=== PATIENT | female | born 1995 | race Caucasian/White ===

== ENCOUNTER 2020-08-31 16:49 | Emergency (ER) | payer OTHER, BC ==
[~2020-08-31] VITALS: Ht 157.5 cm; Wt 59.0 kg
[2020-08-31 22:20] VITALS: BP 124/83
== END 2020-08-31 22:22 | disposition home or self-care (01) ==
LOC: ER 16:49
DX: Z34.01 Encounter for supervision of normal first pregnancy, first trimester (principal); Z3A.01 Less than 8 weeks gestation of pregnancy
CPT/HCPCS: 36415; 76801; 76817; 81002; 84702

== ENCOUNTER 2022-12-01 22:27 | Emergency (ER) | payer OTHER ==
[~2022-12-01] VITALS: Ht 157.5 cm; Wt 66.4 kg
[2022-12-01 23:38] LABS: Basophils # (auto) 0.1 10 ^3/uL (0-0.2); Eosinophils # (auto) 0.2 10 ^3/uL (0-0.8); Monocytes # (auto) 0.8 10 ^3/uL (0-1.3)
[2022-12-01 23:40] LABS: Basophils % (auto) 0.8 % (0.0-2.0); Eosinophils % (auto) 1.9 % (0.0-7.0); Hemoglobin 13.2 g/dL (12.2-16.2); Lymphocytes % (auto) 19.7 % (10.0-50.0); Mean Corpuscular Hemoglobin 26.7 pg (28.0-32.0); Mean Corpuscular Hgb Conc. 32.9 g/dL (32.0-36.0); Mean Corpuscular Volume 81.2 fL (80.0-100.0); Monocytes % (auto) 7.7 % (0.0-12.0); Neutrophils # (auto) 7.3 10 ^3/uL (1.6-8.6); Neutrophils % (auto) 69.9 % (37.0-80.0); Red Blood Cells 4.92 10^6/uL (4.0-5.20); Red Cell Distribution Width 14.8 % (11.8-14.3); White Blood Cell 10.4 10^3/uL (4.4-10.8)
[2022-12-01 23:48] LABS: Albumin 4.4 g/dL (3.4-5.0); BUN/Creatinine Ratio 15.6; Calcium 9.1 mg/dL (8.5-10.1); Potassium 3.9 mmol/L (3.5-5.1)
[2022-12-01 23:50] LABS: Urine Bacteria FEW /hpf (None Seen); Urine Blood Negative /uL (Negative); Urine Specific Gravity 1.005 (1.001-1.035); Urine WBC 1 /hpf (0 - 5)
[2022-12-01 23:50] LABS: Bilirubin, Total 0.3 mg/dL (0.2-1.0); Total Protein 7.9 g/dL (6.4-8.2)
[2022-12-02] MEDS ORDERED: MECL1TAB42 PO (00:44)
[2022-12-02 01:40] VITALS: BP 109/73
[2022-12-02] MEDS ORDERED: MECLIZINE HCL 25 MG TAB PO ONE (01:45)
== END 2022-12-02 01:42 | disposition home or self-care (01) ==
LOC: ER 22:28
DX: H81.10 Benign paroxysmal vertigo, unspecified ear (principal); F41.9 Anxiety disorder, unspecified
CPT/HCPCS: 36415; 70450; 80053; 81001; 85025; 99284; J8597

== ENCOUNTER 2024-09-27 13:21 | Emergency (ER) | payer OTHER ==
[~2024-09-27] VITALS: Ht 157.5 cm; Wt 63.3 kg
[~2024-09-27 13:21] MED LIST: MECL1TAB42 PO
--- NOTE | 2024-09-27 13:45 | ED.PDOC ---
ELECTRIC BLANKET P[employer]ER HPI Comments HPI: Poor Historian. 29-year-old female presents with a chief complaint of vaginal bleeding x onset 09/19/24, ceased on 09/23/2024, then continued again 09/25/2024 has only vaginal spotting. 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 Patient endorses some light cramping in her pelvic region and rates her pain a 1/10 currently. Patient mentions that she is being followed up by fertility clinic and was referred to the ER to rule out an ectopic and to see if the fetus is viable. Patient denies having a Rhogam shot in the past. Patient assumes that she is having a miscarriage like the many she had in the past. PMHx: Anxiety PSHx: Tonsillectomy, Uterine Polyps Allergies: None Initial Vital Signs BP: 120/73 HR: 96 Temp: 98.5F SpO2: 100% RR: 16 REVIEW OF SYSTEMS: CONSTITUTIONAL: Denies acute: fever, diaphoresis, chills, generalized weakness. HEAD: Denies acute: headache, photophobia Eyes: Denies acute: Double vision, vision loss, eye pain, eye discharge. EARS: Denies acute: tinnitus, hearing loss, ear discharge, ear pain, THROAT: Denies acute: sore throat, swelling, difficulty swallowing , pain with swallowing, change in voice. NECK: Denies acute: neck pain, neck swelling, stiff neck. HEART: Denies acute : chest pain, palpitations, LUNGS: Denies acute: SOB, wheezing, cough, hemoptysis ABDOMEN: Denies acute: abdominal pain, Nausea, Vomiting, diarrhea, melena , hematemesis, hematochezia SKIN: Denies acute: rash, redness, lesions, itchiness. EXTREMITIES: Denies acute: calf pain, numbness, tingling, weakness, denies pain in extremity. Denies acute: Low back pain. Neuro: Denies acute: focal neurological deficit, motor or sensory focal neurological deficit, tremors, seizure like activity, confusion, dizziness, change in mental status, loss of bowel or bladder function, cauda equina like symptoms. : Denies acute: dysuria, hematuria, flank pain, increase in urinary frequency. PSYCH: Denies acute: hallucination, suicidal ideation, homicidal ideation. FEMALE: Denies acute: foul odor, unusual discharge. PHYSICAL EXAM: General: no acute distress, awake and alert. Head: normocephalic, atraumatic. Neck: supple, trachea is midline, no swelling. Throat: Normal phonation. Eyes:, no erythema, no purulent discharge, no proptosis, no icterus. Heart: regular rate, regular rhythm, no significant murmur appreciated. Lungs: no apparent respiratory distress, Able to speak in full sentences. No wheezing, no rhonchi, no crackles. No stridors Clear to auscultation bilaterally. Abdomen: non tender to palpation, non distended, soft, no guarding, no rebound, + bowel sounds. Neuro: Awake, Alert, oriented to name, self, situation, follows commands GCS=15. Speech is normal. Skin: no petechia, no purpura, no cyanosis, non-pale, not jaundice. Lower extremities: --no - Pitting edema no deformity, no focal swelling, no calf TTP. Makes eye contact. moves all four extremities. Face: no apparent facial droop. Ambulating in the ED independently. 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 Allergies: Coded Allergies: Clindamycin (Verified Allergy, Unknown, 09/27/24) Home Meds Active Scripts Cephalexin Monohydrate (Cephalexin) 500 Mg Cap, 500 MG PO Q8HR for 5 Days, #15 CAP Prov:FLORENCE ALMAZAN DO 09/27/24 Meclizine HCl (Meclizine 25) 25 Mg Tab, 25 MG PO TID PRN, #40 TAB Prov:JOHN COELLO 12/02/22 Information Source: Patient Mode of Arrival: Ambulatory Past Medical History PAST MEDICAL HISTORY: Anxiety Surgical History: Denies all surgeries [employer]IABILITY TECH[employer]ICIANS History: No Pertinent [employer]CH[employer]IANS History Family History Family History: Unobtainable Social History Smoker: Non-Smoker Alcohol: Denies ETOH Use Drugs: Denies Drug Use Lives In: Home Was a procedure done? Was a procedure done?: No Differential Diagnosis ([employer]) Vaginal Bleeding: Other (Differential diagnosis includes but not limited to DU B, menorrhea, metromenorrhagia, neoplasm, coagulopathy,, trauma, miscarriage, placenta previa, placental abruption, ) X-Ray, Labs, Meds, VS Vital Signs Date Time Temp Pulse Resp B/P (MAP) Pulse Ox O2 Delivery O2 Flow Rate FiO2 09/27/24 15:24 98.5 96 18 122/82 (95) 99 98.5 09/27/24 15:24 96 18 99 Room Air* 0 21 09/27/24 13:34 98.5 96 16 120/73 (89) 100 Lab Test 09/27/24 13:50 09/27/24 13:46 Range/Units White Blood Count 11.0 H 4.4-10.8 10^3/uL Red Blood Count 5.17 4.0-5.20 10^6/uL Hemoglobin 14.7 12.2-16.2 g/dL Hematocrit 44.1 36.0-46.0 % Mean Corpuscular Volume 85.3 80.0-100.0 fL Mean Corpuscular Hemoglobin 28.5 28.0-32.0 pg Mean Corpuscular Hemoglobin Concent 33.3 32.0-36.0 g/dL Red Cell Distribution Width 13.5 11.8-14.3 % Platelet Count 318 140-450 10^3/uL Mean Platelet Volume 9.0 6.9-10.8 fL Neutrophils (%) (Auto) 76.2 37.0-80.0 % Lymphocytes (%) (Auto) 16.1 10.0-50.0 % Monocytes (%) (Auto) 6.1 0.0-12.0 % Eosinophils (%) (Auto) 1.0 0.0-7.0 % Basophils (%) (Auto) 0.6 0.0-2.0 % Neutrophils # (Auto) 8.3 1.6-8.6 10 ^3/uL Lymphocytes # (Auto) 1.8 0.4-5.4 10 ^3/uL Monocytes # (Auto) 0.7 0-1.3 10 ^3/uL Eosinophils # (Auto) 0.1 0-0.8 10 ^3/uL Basophils # (Auto) 0.1 0-0.2 10 ^3/uL Nucleated Red Blood Cells 0.0 % Sodium Level 139 136-145 mmol/L Potassium Level 3.7 3.5-5.1 mmol/L Chloride Level 105 98-107 mmol/L Carbon Dioxide Level 28 20-31 mmol/L Anion Gap 6 5-15 Blood Urea Nitrogen 10 9-23 mg/dL Creatinine 0.70 0.550-1.02 mg/dL Glomerular Filtration Rate Calc 121 >90 mL/min BUN/Creatinine Ratio 14.3 10.0-20.0 Serum Glucose 88 74-106 mg/dL Lactic Acid Level 0.9 0.4-2.0 mmol/L Calcium Level 10.2 8.7-10.4 mg/dL Total Bilirubin 0.4 0.2-1.0 mg/dL Aspartate Amino Transferase (AST) < 8 L 13-40 U/L Alanine Aminotransferase (ALT) 12 7-40 U/L Alkaline Phosphatase 88 46-116 U/L Total Protein 7.9 5.7-8.2 g/dL Albumin 5.0 H 3.2-4.8 g/dL Beta HCG, Quantitative 141.9 H 1.5-4.2 mIU/mL Urine Color Light-yellow Yellow Urine Clarity Turbid H Clear Urine pH 5.5 5.0-9.0 Urine Specific Squires 1.028 1.001-1.035 Urine Protein Negative Negative Urine Ketones Negative Negative Urine Blood 1+ H Negative /uL Urine Nitrite Negative Negative Urine Bilirubin Negative Negative Urine Urobilinogen Normal Negative mg/dL Urine Leukocyte Esterase Trace Negative /uL Urine RBC 2 0 - 4 /hpf Urine WBC 8 0 - 5 /hpf Urine Squamous Epithelial Cells Mod <5 /hpf Urine Bacteria Few H None Seen /hpf Urine Mucus Few None Seen Urine Glucose Normal Normal mg/dL Current Medications Medications (Trade) Dose Ordered Sig/Hector Route Start Time Stop Time Status Last Admin Ceftriaxone Sodium 50 ml @ 100 mls/hr ONCE ONCE IV 09/27/24 14:45 09/27/24 15:14 DC 09/27/24 15:28 Time of 1ST Reevaluation: 14:07 Reevaluation 1ST: Unchanged Patient Education/Counseling: Diagnosis, Treatment Family Education/Counseling: No Family Present Comments Patient presented with the above HPI.---vaginal bleed in ---workup was initiated. patient was found with the above mentioned diagnosis. Patient ED course and VS have been stabilized. Patient has been reassessed in the ED and remained in a stable condition. Pertinent incidental findings were discussed with the patient and/or family. Patient/family voices understanding and is agreeable with plan. Patient has been observed in the ED adequate length of time to insure improvement/stability. patient was discharged home in a stable condition. All the reports of any imaging studies that were ordered by myself were reviewed by myself. Departure 1 Departure Time of Disposition: 15:49 Impression: Primary Impression: test positive for normal first in first trimester Additional Impressions: Urinary tract infection Vaginal bleeding affecting early Disposition: 01 HOME / SELF CARE / HOMELESS Condition: Stable Additional Instructions: Additional discharge instructions: You MUST follow-up with your primary care/family doctor in 1 to 2 days. If you are unable to see your primary care/family doctor, please return to our emergency room for re-assessment and re-evaluation in 1 to 2 days. Return to the emergency room here in our facility or to the nearest ER [facility] if your symptoms change or worsen. CONSULTATIONS: you MUST Follow-up for consultation as soon as possible with: Dr.-OB Lawson doctor in 1-2 days. Please call for appointment You MUST call the consultants office yourself to make an appointment. You may need to arrange that through your insurance and/or your primary/family doctor. If you are unable to see the healthcare risk control consultant in 1 to 2 days, you must return to our emergency room (or any other ER of your choice) for re-assessment and re-evaluation. Adequate fluid hydration. Pelvic rest Repeat pelvic ultrasound in 4-5 days. Repeat beta-hCG levels in 48-72 hours. Beta HCG, Quant level on 09/27/2024 is 141.9 Below is a copy of your radiological report for follow up: [place] [id number] Ph: [phone] DIAGNOSTIC IMAGING Diagnostic Imaging Report : [id number] Signed PATIENT: SHAWN GUY ACCT: [id number] UNIT: [id number] : 1995 LOC: ER ROOM / BED: / AGE / SEX: 29 / F ADM STATUS: REG ER SERVICE [id number] ORDERING PHYSICIAN: FLORENCE ALMAZAN DO PROCEDURE(s): OB4US - OB ULTRASOUND COMP LESS 14WKS REASON: vag spotting ORDER NUMBER(s): [id number], ACCESSION NUMBER(s): [id number] US OB ULTRASOUND COMP LESS 14WKS HISTORY: vag spotting COMPARISON: None TECHNIQUE: Transabdominal and transvaginal images with color Doppler were obtained of the pelvis. FINDINGS: Uterus: - Measures 8.9 x 5.4 x 4.0 cm in length. - Mass lesions: None - Intrauterine : No - Gestational sac: No - Yolk sac: No - Embryonic pole: No Right ovary: - Measures 3.0 x 2.6 x 2.5 cm - Vascularity: Normal flow on Doppler images. - Mass lesions: 1.9 x 1.7 x 1.7 cm cyst. Left ovary: - Measures 2.8 x 2.6 x 2.0 cm - Vascularity: Normal flow on Doppler images. - Mass lesions: None Adnexal masses: None Free fluid: Trace Other: None IMPRESSION: No intrauterine visualized at this time. Normal appearing bilateral ovaries. ATED BY: YOGESH GUSMAN MD DICTATED DATE/TIME: 09/27/24 1526 SIGNED BY: YOGESH GUSMAN MD SIGNED DATE/TIME: 09/27/24 1526 CC: e-Prescriptions Cephalexin Monohydrate (Cephalexin) 500 Mg Cap 500 MG PO Q8HR for 5 Days, #15 CAP Prov: FLORENCE ALMAZAN DO 09/27/24 Discharged With: Self Critical Care Note Critical Care Time?: No I personally scribed for FLORENCE ALMAZAN DO ([email or web address]) on 09/27/24 at 13:45. Elec tronically submitted by Ap Rodriguez ([email or web address]). I personally scribed for FLORENCE ALMAZAN DO ([email or web address]) on 09/27/24 at 15:52. Elect ronically submitted by Ap Rodriguez ([email or web address]). FLORENCE ALMAZAN DO Sep 27, 2024 13:45
[2024-09-27 14:06] LABS: Urine Bacteria FEW /hpf (None Seen); Urine Blood 1+ /uL (Negative); Urine Clarity Turbid (Clear); Urine Color Light-Yellow (Yellow); Urine Mucus FEW (None Seen); Urine Protein, UAD Negative (Negative); Urine Specific Gravity 1.028 (1.001-1.035); Urine Urobilinogen Normal (Negative); Urine WBC 8 /hpf (0 - 5); Urine pH 5.5 (5.0-9.0)
[2024-09-27 14:16] LABS: Basophils # (auto) 0.1 10 ^3/uL (0-0.2); Basophils % (auto) 0.6 % (0.0-2.0); Eosinophils # (auto) 0.1 10 ^3/uL (0-0.8); Hematocrit 44.1 % (36.0-46.0); Hemoglobin 14.7 g/dL (12.2-16.2); Lymphocytes # (auto) 1.8 10 ^3/uL (0.4-5.4); Lymphocytes % (auto) 16.1 % (10.0-50.0); Mean Corpuscular Hemoglobin 28.5 pg (28.0-32.0); Mean Corpuscular Hgb Conc. 33.3 g/dL (32.0-36.0); Mean Corpuscular Volume 85.3 fL (80.0-100.0); Monocytes # (auto) 0.7 10 ^3/uL (0-1.3); Monocytes % (auto) 6.1 % (0.0-12.0); Neutrophils # (auto) 8.3 10 ^3/uL (1.6-8.6); Neutrophils % (auto) 76.2 % (37.0-80.0); Platelet Count (auto) 318 10^3/uL (140-450); Red Blood Cells 5.17 10^6/uL (4.0-5.20); Red Cell Distribution Width 13.5 % (11.8-14.3)
[2024-09-27 14:24] LABS: Alanine Aminotransferase 12 U/L (7-40); Alkaline Phosphatase 88 U/L (46-116); Anion Gap 6 (5-15); Aspartate Aminotransferase < 8 U/L (13-40); BUN/Creatinine Ratio 14.3 (10.0-20.0); Blood Urea Nitrogen 10 mg/dL (9-23); Calcium 10.2 mg/dL (8.7-10.4); Carbon Dioxide 28 mmol/L (20-31); Chloride 105 mmol/L (98-107); Glucose 88 mg/dL (74-106); Potassium 3.7 mmol/L (3.5-5.1); Sodium 139 mmol/L (136-145)
[2024-09-27 14:25] LABS: Bilirubin, Total 0.4 mg/dL (0.2-1.0); Total Protein 7.9 g/dL (5.7-8.2)
[2024-09-27 15:24] VITALS: BP 122/82; PULSE 96; RESP 18; TEMP 98.5; O2SAT 99
[2024-09-27] MEDS: cefTRIAXone 1GM/50ML D5W 50 ML IV ONE (15:28)
--- NOTE | 2024-09-27 15:28 | DVH ---
US OB ULTRASOUND COMP LESS 14WKS HISTORY: vag spotting COMPARISON: None TECHNIQUE: Transabdominal and transvaginal images with color Doppler were obtained of the pelvis. FINDINGS: Uterus: - Measures 8.9 x 5.4 x 4.0 cm in length. - Mass lesions: None - Intrauterine : No - Gestational sac: No - Yolk sac: No - Embryonic pole: No Right ovary: - Measures 3.0 x 2.6 x 2.5 cm - Vascularity: Normal flow on Doppler images. - Mass lesions: 1.9 x 1.7 x 1.7 cm cyst. Left ovary: - Measures 2.8 x 2.6 x 2.0 cm - Vascularity: Normal flow on Doppler images. - Mass lesions: None Adnexal masses: None Free fluid: Trace Other: None IMPRESSION: No intrauterine visualized at this time. Normal appearing bilateral ovaries.
[2024-09-27] MEDS ORDERED: CEPH500C PO (15:50)
== END 2024-09-27 16:05 | disposition home or self-care (01) ==
LOC: ER 13:21
DX: O23.41 Unspecified infection of urinary tract in pregnancy, first trimester (principal); R10.2 Pelvic and perineal pain; N39.0 Urinary tract infection, site not specified; F41.9 Anxiety disorder, unspecified; Z3A.01 Less than 8 weeks gestation of pregnancy; Z79.899 Other long term (current) drug therapy; Z90.89 Acquired absence of other organs; Z88.1 Allergy status to other antibiotic agents
CPT/HCPCS: 36415; 76801; 76817; 80053; 81001; 83605; 84702; 85025; 86850; 86900; 86901; 96365; 99285; J0696